=== PATIENT | male | born 1950 | race Caucasian/White ===

== ENCOUNTER 2019-12-27 14:01 | Emergency (ER) | payer MEDICARE, OTHER ==
[~2019-12-27] VITALS: Ht 172.7 cm; Wt 79.5 kg
--- NOTE | 2019-12-27 14:23 | ED Upper Extremity ---
General Chief Complaint: Upper Extremity Stated Complaint: FELL FROM A LADDER - RT SHOULDER PAIN History of Present Illness Date Seen by Provider: Dec 27, 2019 Time Seen by Provider: 14:00 Initial Comments 69-year-old male presents with right shoulder pain. Was standing on a 5 foot ladder and fell off landing on the ground on his right shoulder. Pain localized to this area, decreased range of motion. Denies any other pain or injury. Denies head or neck pain, denies back or extremity pain other than his R shoulder. Allergies and Home Medications Allergies Coded Allergies: codeine (Verified Adverse Reaction, Unknown, Vomiting, 12/27/19) morphine (Verified Adverse Reaction, Unknown, Vomiting, 12/27/19) Home Medications Ibuprofen 800 Mg Tablet, 800 MG PO Q8H PRN for PAIN Prescribed by: LALA WONG on 12/27/19 5929 Patient Home Medication List Home Medication List Reviewed: Yes Review of Systems Constitutional: No fever, No malaise, No weakness Respiratory: no symptoms reported; No cough, No short of breath Cardiovascular: no symptoms reported; No chest pain, No edema, No palpitations Musculoskeletal: see HPI, joint pain (R shoulder); No neck pain Skin: No change in color, No rash Psychiatric/Neurological: Denies Numbness, Denies Paresthesia, Denies Pre- Existing Deficit, Denies Tingling, Denies Weakness Past Xkxujuf-Fklnup-Occrfk Hx Past Med/Social Hx: Reviewed Nursing Past Med/Soc Hx Physical Exam Vital Signs Vital Signs - First Documented 12/27/19 14:08 Temp 36.2 Pulse 66 Resp 18 B/P (MAP) 130/76 (94) Pulse Ox 97 O2 Delivery Room Air Capillary Refill : Height, Weight, BMI Height: '" Weight: lbs. oz. kg; BMI Method: General Appearance: WD/WN, no apparent distress Neck: non-tender, full range of motion, supple, normal inspection Shoulder: limited ROM, pain (generalized ant shoulder. Fullness anteriorly, decreased ROM w extension and abdution. Held in flex and adduction. NVI) Progress/Results/Core Measures Results/Orders My Orders Orders - LALA WONG DO Shoulder 3 View Right (12/27/19 14:11) Vital Signs/I&O 12/27/19 14:08 Temp 36.2 Pulse 66 Resp 18 B/P (MAP) 130/76 (94) Pulse Ox 97 O2 Delivery Room Air Diagnostic Imaging Diagonstic Imaging: Xray Departure Impression Primary Impression: Sprain of right shoulder Qualified Codes: S43.401A - Unspecified sprain of right shoulder joint, i nitial encounter Additional Impression: Contusion of shoulder, right Qualified Codes: S40.011A - Contusion of right shoulder, initial encounter Disposition: HOME, SELF-CARE Condition: Improved Departure-Patient Inst. Decision time for Depature: 14:50 Patient Instructions: How to Use a Shoulder Sling, Shoulder Sprain (DC), Shoulder Pain (DC) Add. Discharge Instructions: See your Primary Doctor for re-evaluation in 1 week. Wear the sling for comfort, Ice the shoulder area for 20 minutes twice daily and do gently range of motion exercises as tolerated. All discharge instructions reviewed with patient and/or family. Voiced understanding. Scripts Ibuprofen (Ibuprofen) 800 Mg Tablet 800 MG PO Q8H PRN for PAIN, #30 TAB 0 Refills Prov: LALA WONG DO 12/27/19 LALA WONG DO Dec 27, 2019 14:23
--- NOTE | 2019-12-27 14:45 | Diagnostic Imaging Report ---
INDICATION: Fall with right shoulder pain and injury. TIME OF EXAM: 2:18 p.m. EXAMINATION: Three views of the right shoulder were obtained. FINDINGS: Glenohumeral and acromioclavicular alignment are normal. Acromiohumeral space is normal. No definite fracture or dislocation is identified. IMPRESSION: No acute bony abnormality is detected. Dictated by: Dictated on workstation # [id number]
[2019-12-27] MEDS ORDERED: IBUP-1780 PO (14:46)
[2019-12-27 15:05] VITALS: BP 130/76
== END 2019-12-27 15:05 | disposition home or self-care (01) ==
LOC: ER FS 14:03
DX: S43.401A Unspecified sprain of right shoulder joint, initial encounter (principal); Z88.5 Allergy status to narcotic agent; W11.XXXA Fall on and from ladder, initial encounter
CPT/HCPCS: 73030; 99283; A4565